=== PATIENT | female | born 1990 | race Caucasian/White ===

== ENCOUNTER 2016-09-16 15:46 | Emergency (ER) | payer OTHER ==
[~2016-09-16] VITALS: Ht 154.9 cm; Wt 56.0 kg
[2016-09-16 15:52] VITALS: Ht 154.9 cm; Wt 56.0 kg
[2016-09-16] MEDS ORDERED: morphine 10 MG INJ IM ONE (18:00)
--- NOTE | 2016-09-16 18:17 | ERD ---
ER Documentation Chief Complaint Date/Time DATE: 09/16/16 TIME: 18:13 Chief Complaint right foot pain HPI This 26-year-old female presents after a fall in which she twisted her ankle and she now has medial ankle pain tracking up the inside of her lower right calf. She has ambulated however has pain on axial loading. No pain of the foot and no pain of the knee. She is otherwise healthy. ROS All systems reviewed and are negative except as per history of present illness. Medications Home Meds Active Scripts Naproxen* (Naproxen*) 500 Mg Tablet, 500 MG PO BID Y for PAIN, #20 TAB Prov:SEAN SAN DO 09/16/16 Hydrocodone/Acetaminophen ([place] 5-325 Tablet) 1 Each Tablet, 1 EACH PO Q6, #14 TAB Prov:SEAN SAN DO 09/16/16 Physical Exam Vitals Vital Signs Date Time Temp Pulse Resp B/P Pulse Ox O2 Delivery O2 Flow Rate FiO2 09/16/16 15:52 97.8 92 18 108/65 99 Physical Exam Const: [] No distress ENT: Normal External Ears, Nose and Mouth. Skin: No petechiae or rashes Ext: No cyanosis, no obvious deformity. Patient does have tenderness along medial malleolus as well as just above medial malleolus. No tenderness of any bones of the foot. Distal pulses intact with capillary refill intact. Good motor to foot. Neur: Awake and alert Results 24 hrs Current Medications Medications (Trade) Dose Ordered Sig/Tracy Route PRN Reason Start Time Stop Time Status Last Admin Dose Admin Morphine Sulfate (morphine) 4 mg ONCE ONCE IM 09/16/16 18:00 09/16/16 18:10 DC Acetaminophen/ Hydrocodone Bitart ([place] (5/325)) 1 tab ONCE ONCE PO 09/16/16 18:30 09/16/16 18:31 DC 09/16/16 18:53 Procedures/MDM Ankle sprain. Patient does have significant pain on trying to stand. She was given a [place] in the emergency room which helped reduce her pain somewhat. Going to discharge her with naproxen and [place]. [facility] care follow-up and possible orthopedic follow-up through primary care doctor is advised. Provided aN ankle splint as well as crutches for her because she has significant pain upon ambulation. Ankle x-ray interpretation: I see no acute fracture dislocation or subluxation. I do see some soft tissue swelling. ER splint application note: Treatment Velcro ankle splint orthosis shoe was applied to patient's left ankle. I informed her neurovascular assessment after this the patient was neurovascularly intact. Tolerated the application well with no complications. Departure Diagnosis: Primary Impression: Ankle sprain Condition: Stable SEAN SAN DO Sep 16, 2016 18:17
[2016-09-16] MEDS ORDERED: HYDROCODONE/APAP (5/325) TAB PO ONE (18:30)
--- NOTE | 2016-09-16 19:05 | RADRPT ---
PROCEDURE: X-ray right ankle CLINICAL INDICATION: Fall with right ankle pain TECHNIQUE: 3 views right ankle. COMPARISON: None FINDINGS: Reference marker is directed towards the lateral malleolus with underlying soft tissue swelling. No acute fracture dislocation. Remaining soft tissues are unremarkable. IMPRESSION: Soft tissue swelling over the lateral malleolus, without acute fracture. RPTAT: [facility] Physician Reinaldo Date Time Electronically viewed and signed by Physician Reinaldo on 09/16/2016 19:05 RS/
[2016-09-16] MEDS ORDERED: NAPR-688 PO (19:50)
[2016-09-16] MEDS ORDERED: HYDR-906 PO (19:50)
[2016-09-16 20:21] VITALS: BP 108/71; PULSE 53; RESP 14; TEMP 98.2
== END 2016-09-16 20:21 | disposition home or self-care (01) ==
LOC: FTE 15:46
DX: S93.401A Sprain of unspecified ligament of right ankle, initial encounter (principal); X50.9XXA Other and unspecified overexertion or strenuous movements or postures, initial encounter; Y92.9 Unspecified place or not applicable
CPT/HCPCS: 73610; Z7610; 96372